=== PATIENT | female | born 1960 | race Caucasian/White ===

== ENCOUNTER 2017-03-21 14:02 | Inpatient (IN) | payer BC, MEDICARE ==
[~2017-03-21] VITALS: Ht 165.1 cm; Wt 57.2 kg
[~2017-03-21 14:02] MED LIST: CARI350T PO; CLON2TAB PO; LEVE750T35 PO; PREG300C PO; TRAM50TA2 PO
[2017-03-21] MEDS ORDERED: Z GUARD REMEDY PASTE 57 GM TUBE TOP PRN (14:45)
[2017-03-21] MEDS ORDERED: MAGNESIUM HYDROXIDE 30 ML LIQUID UDC PO PRN (14:45)
[2017-03-21] MEDS ORDERED: LEVA1.2528 IH (14:55)
[2017-03-21] MEDS ORDERED: MIRT15TA7 PO (14:55)
[2017-03-21] MEDS ORDERED: LAMO25TA PO (14:55)
[2017-03-21] MEDS ORDERED: PRED20TA PO (14:55)
[2017-03-21] MEDS ORDERED: RISP0.5T20 SL (14:55)
[2017-03-21] MEDS ORDERED: ALBU2.5V38 IH (14:55)
[2017-03-21] MEDS ORDERED: BENZ0.5T43 PO (14:55)
[2017-03-21] MEDS ORDERED: ASPI-869 PO (14:55)
[2017-03-21] MEDS ORDERED: ENOX40DI SQ (14:55)
[2017-03-21] MEDS ORDERED: LACT-215 PO (14:55)
[2017-03-21 20:22] VITALS: BP 114/71
[2017-03-22] MEDS ORDERED: TRAMADOL HCL 50 MG TABLET PO PRN (07:00)
[2017-03-22] MEDS ORDERED: LEVALBUTEROL HCL NEB 0.63 MG/3 ML NEBU NEB PRN (07:00)
[2017-03-22] MEDS ORDERED: CARISOPRODOL 350 MG TABLET PO PRN (07:00)
[2017-03-22 08:00] VITALS: BP 119/77
[2017-03-22] MEDS ORDERED: LAMOTRIGINE 25 MG TABLET PO SCH (09:00)
[2017-03-22] MEDS ORDERED: ASPIRIN EC 325 MG TABLET.DR PO SCH (09:00)
[2017-03-22] MEDS ORDERED: LEVETIRACETAM 750 MG PO SCH (09:00)
[2017-03-22] MEDS ORDERED: PREGABALIN 300 MG PO SCH (09:00)
[2017-03-22] MEDS ORDERED: BENZTROPINE MESYLATE 0.5 MG TABLET PO SCH (09:00)
[2017-03-22] MEDS ORDERED: LACTOSE FREE FOOD PO SCH (09:00)
[2017-03-22] MEDS ORDERED: predniSONE 20 MG TABLET PO SCH (09:00)
[2017-03-22] MEDS ORDERED: ENOXAPARIN SODIUM 40 MG/0.4 ML DISP.SYRIN SQ SCH (09:00)
[2017-03-22] MEDS ORDERED: BOOST BREEZE 237 ML LIQUID PO SCH (11:00)
[2017-03-22] MEDS ORDERED: PREGABALIN 100 MG CAPSULE PO SCH (11:00)
[2017-03-22] MEDS ORDERED: ALBUTEROL SULFATE 1.25 MG/3 ML NEBU NEB PRN (11:00)
[2017-03-22] MEDS ORDERED: CLONAZEPAM 1 MG TABLET PO SCH (11:00)
[2017-03-22] MEDS ORDERED: LEVETIRACETAM 500 MG TABLET PO SCH (11:15)
[2017-03-22] MEDS: risperiDONE 0.5 MG TABLET PO SCH ×2 (11:38→13:29)
[2017-03-22] MEDS ORDERED: ONDANSETRON 4 MG/2 ML VIAL IV PRN (16:45)
[2017-03-22] MEDS ORDERED: MAGNESIUM HYDROXIDE 30 ML LIQUID UDC PO PRN (16:45)
[2017-03-22] MEDS ORDERED: Z GUARD REMEDY PASTE 57 GM TUBE TOP PRN (16:45)
[2017-03-22] MEDS ORDERED: IV NS 1000 ML 1,000 ML IV PRN (16:45)
[2017-03-22 17:11] LABS: ABG BASE EXCESS -1.3 mmol/L; ABG HCO3 22.1 mmol/L; ABG PCO2 33.5 mmHg (35.0-45.0); ABG PH 7.438 (7.350-7.450); ABG PO2 112.5 mmHg (75.0-100.0); ABG SITE RIGHT BRACHIAL; ABG TOTAL HEMOGLOBIN 13.4 G/dL (12.0-16.0); COHb 1.1 % (0.5-1.5); MetHb 0.3 % (0.0-1.5); O2Hb 96.9 % (94.0-97.0); VENT MODE Nasal Cannula
[2017-03-22] MEDS ORDERED: MIRTAZAPINE 15 MG TABLET PO SCH (21:00)
[2017-03-23 08:51] LABS: BASOPHILS # (AUTO) 0.1 K/uL (0.0-8.0); BASOPHILS % (AUTO) 0.6 % (0.0-2.0); EOSINOPHILS # (AUTO) 0.1 K/uL (0.0-0.7); EOSINOPHILS % (AUTO) 0.9 % (0.0-7.0); HEMATOCRIT 38.9 % (31.2-41.9); HEMOGLOBIN 12.9 g/dL (10.9-14.3); LYMPHOCYTES # (AUTO) 3.6 K/uL (20.0-40.0); LYMPHOCYTES % (AUTO) 23.9 % (20.5-51.5); MEAN CORPUSCULAR HEMOGLOBIN 29.3 uug (24.7-32.8); MEAN CORPUSCULAR HGB CONC 33 g/dL (32.3-35.6); MEAN CORPUSCULAR VOLUME 88.2 fL (75.5-95.3); MONOCYTES % (AUTO) 6.9 % (0.0-11.0); NEUTROPHILS # (AUTO) 10.2 K/uL (1.8-8.9); NEUTROPHILS % (AUTO) 67.7 % (38.5-71.5); PLATELET COUNT (AUTO) 513 K/uL (179-408); RED BLOOD CELL COUNT(AUTO) 4.41 MIL/uL (3.63-4.92)
[2017-03-23 09:15] LABS: THYROID STIMULATING HORMONE 1.517 mIU/mL (0.358-3.740)
[2017-03-23 09:34] LABS: BILIRUBIN,TOTAL 0.4 mg/dL (0.2-1.0); CREATININE 0.7 mg/dL (0.6-1.3); MAGNESIUM 2.1 mg/dL (1.8-2.4); PHOSPHOROUS 3.7 mg/dL (2.5-4.9); POTASSIUM 3.3 mmol/L (3.5-5.1); TOTAL PROTEIN, SERUM 6.1 g/dL (6.4-8.2)
[2017-03-24] MEDS ORDERED: ALBU2.5V7 IH (12:27)
[2017-03-24] MEDS ORDERED: BENZ0.5T43 PO ×2 (12:27→20:32)
[2017-03-24] MEDS ORDERED: LAMO25TA5 PO (12:27)
[2017-03-24] MEDS ORDERED: ASPI-610 PO (12:27)
[2017-03-24] MEDS ORDERED: ENOX40DI SQ ×2 (12:27→20:32)
[2017-03-24] MEDS ORDERED: MIRT15TA7 PO ×2 (12:27→20:32)
[2017-03-24] MEDS ORDERED: LEVE500T9 PO (12:27)
[2017-03-24] MEDS ORDERED: RISP0.5T5 PO (12:27)
[2017-03-24] MEDS ORDERED: LIDO30AD10 TD ×2 (12:27→20:32)
[2017-03-24] MEDS ORDERED: PRED20TA PO ×2 (12:27→20:32)
[2017-03-24] MEDS ORDERED: PREG50CA PO ×2 (12:27→20:32)
[2017-03-24] MEDS ORDERED: ATOR20TA PO ×2 (12:27→20:32)
[2017-03-24] MEDS ORDERED: ALBUTEROL SULFATE 2.5 MG/3 ML NEBU NEB PRN (21:15)
[2017-03-25] MEDS: ACETAMINOPHEN 325 MG TABLET PO PRN (00:12)
[2017-03-25 08:00] VITALS: BP 114/47
[2017-03-25] MEDS: LIDOCAINE 5% PATCH TD SCH (10:15)
[2017-03-25] MEDS: LAMOTRIGINE 25 MG TABLET PO SCH ×2 (10:15→20:44)
[2017-03-25] MEDS: LEVETIRACETAM 500 MG TABLET PO SCH ×2 (10:16→20:43)
[2017-03-25] MEDS: risperiDONE 0.5 MG TABLET PO SCH ×3 (10:16→17:20)
[2017-03-25] MEDS: ASPIRIN 325 MG TABLET PO SCH (10:17)
[2017-03-25] MEDS: PREGABALIN 50 MG CAPSULE PO SCH (10:17)
[2017-03-25] MEDS: predniSONE 20 MG TABLET PO SCH (10:17)
[2017-03-25] MEDS: BENZTROPINE MESYLATE 0.5 MG TABLET PO SCH ×2 (10:17→17:20)
[2017-03-25] MEDS: ENOXAPARIN SODIUM 40 MG/0.4 ML DISP.SYRIN SQ SCH (10:29)
[2017-03-25 20:00] VITALS: BP 115/82
[2017-03-25] MEDS: ATORVASTATIN 20 MG TABLET PO SCH (20:43)
[2017-03-25] MEDS: MIRTAZAPINE 15 MG TABLET PO SCH (20:44)
[2017-03-25] MEDS: ZOLPIDEM 5 MG TABLET PO PRN (22:11)
[2017-03-26 07:10] VITALS: BP 118/73
[2017-03-26] MEDS: LEVETIRACETAM 500 MG TABLET PO SCH ×2 (09:18→21:04)
[2017-03-26] MEDS: risperiDONE 0.5 MG TABLET PO SCH ×3 (09:18→16:08)
[2017-03-26] MEDS: BENZTROPINE MESYLATE 0.5 MG TABLET PO SCH ×2 (09:18→16:08)
[2017-03-26] MEDS: PREGABALIN 50 MG CAPSULE PO SCH (09:19)
[2017-03-26] MEDS: predniSONE 20 MG TABLET PO SCH (09:19)
[2017-03-26] MEDS: LIDOCAINE 5% PATCH TD SCH (09:19)
[2017-03-26] MEDS: ASPIRIN 325 MG TABLET PO SCH (09:19)
[2017-03-26] MEDS: LAMOTRIGINE 25 MG TABLET PO SCH ×2 (09:19→21:04)
[2017-03-26] MEDS: ENOXAPARIN SODIUM 40 MG/0.4 ML DISP.SYRIN SQ SCH (09:22)
[2017-03-26 16:49] LABS: CREATININE 0.7 mg/dL (0.6-1.3); POTASSIUM 3.6 mmol/L (3.5-5.1)
[2017-03-26 20:25] VITALS: BP 115/73
[2017-03-26] MEDS: ATORVASTATIN 20 MG TABLET PO SCH (21:02)
[2017-03-26] MEDS: MIRTAZAPINE 15 MG TABLET PO SCH (21:03)
[2017-03-26] MEDS: ZOLPIDEM 5 MG TABLET PO PRN (22:47)
[2017-03-26] MEDS: METHOCARBAMOL 500 MG TABLET PO PRN (22:47)
[2017-03-27 07:15] VITALS: BP 104/71
[2017-03-27 07:20] VITALS: BP 149/70
[2017-03-27] MEDS: ASPIRIN 325 MG TABLET PO SCH (08:30)
[2017-03-27] MEDS: LAMOTRIGINE 25 MG TABLET PO SCH ×2 (08:30→22:04)
[2017-03-27] MEDS: risperiDONE 0.5 MG TABLET PO SCH ×3 (08:30→17:45)
[2017-03-27] MEDS: BENZTROPINE MESYLATE 0.5 MG TABLET PO SCH ×2 (08:30→17:44)
[2017-03-27] MEDS: PREGABALIN 50 MG CAPSULE PO SCH (08:30)
[2017-03-27] MEDS: LIDOCAINE 5% PATCH TD SCH (08:30)
[2017-03-27] MEDS: predniSONE 20 MG TABLET PO SCH (08:31)
[2017-03-27] MEDS: ENOXAPARIN SODIUM 40 MG/0.4 ML DISP.SYRIN SQ SCH (08:35)
[2017-03-27] MEDS: BACLOFEN 10 MG TABLET PO SCH ×3 (08:37→17:00)
[2017-03-27] MEDS: LEVETIRACETAM 500 MG TABLET PO SCH ×2 (09:31→22:03)
[2017-03-27] MEDS: METHOCARBAMOL 500 MG TABLET PO PRN ×3 (09:32→23:04)
[2017-03-27] MEDS: ACETAMINOPHEN 325 MG TABLET PO PRN (18:41)
[2017-03-27 20:17] VITALS: BP 105/43
[2017-03-27] MEDS: MIRTAZAPINE 15 MG TABLET PO SCH (22:03)
[2017-03-27] MEDS: ATORVASTATIN 20 MG TABLET PO SCH (22:03)
[2017-03-27] MEDS: ZOLPIDEM 5 MG TABLET PO PRN (23:04)
[2017-03-28] MEDS: predniSONE 20 MG TABLET PO SCH (09:22)
[2017-03-28] MEDS: LEVETIRACETAM 500 MG TABLET PO SCH ×2 (09:22→21:41)
[2017-03-28] MEDS: risperiDONE 0.5 MG TABLET PO SCH ×3 (09:22→16:05)
[2017-03-28] MEDS: LIDOCAINE 5% PATCH TD SCH (09:22)
[2017-03-28] MEDS: ASPIRIN 325 MG TABLET PO SCH (09:22)
[2017-03-28] MEDS: LAMOTRIGINE 25 MG TABLET PO SCH ×2 (09:22→21:42)
[2017-03-28] MEDS: BENZTROPINE MESYLATE 0.5 MG TABLET PO SCH ×2 (09:22→16:05)
[2017-03-28] MEDS: PREGABALIN 50 MG CAPSULE PO SCH (09:22)
[2017-03-28] MEDS: ENOXAPARIN SODIUM 40 MG/0.4 ML DISP.SYRIN SQ SCH (09:23)
[2017-03-28 09:42] VITALS: BP 114/70
[2017-03-28] MEDS: METHOCARBAMOL 500 MG TABLET PO PRN (13:30)
[2017-03-28 19:30] VITALS: BP 129/59
[2017-03-28] MEDS: ATORVASTATIN 20 MG TABLET PO SCH (21:41)
[2017-03-28] MEDS: CARISOPRODOL 350 MG TABLET PO PRN (21:42)
[2017-03-28] MEDS: MIRTAZAPINE 15 MG TABLET PO SCH (21:42)
[2017-03-28] MEDS: ZOLPIDEM 5 MG TABLET PO PRN (23:20)
[2017-03-29] MEDS: predniSONE 20 MG TABLET PO SCH (08:08)
[2017-03-29] MEDS: BENZTROPINE MESYLATE 0.5 MG TABLET PO SCH ×2 (08:08→16:41)
[2017-03-29] MEDS: LAMOTRIGINE 25 MG TABLET PO SCH ×2 (08:08→20:33)
[2017-03-29] MEDS: risperiDONE 0.5 MG TABLET PO SCH ×3 (08:08→16:41)
[2017-03-29] MEDS: LEVETIRACETAM 500 MG TABLET PO SCH ×2 (08:08→20:33)
[2017-03-29] MEDS: ASPIRIN 325 MG TABLET PO SCH (08:08)
[2017-03-29] MEDS: PREGABALIN 50 MG CAPSULE PO SCH (08:08)
[2017-03-29] MEDS: ENOXAPARIN SODIUM 40 MG/0.4 ML DISP.SYRIN SQ SCH (08:09)
[2017-03-29] MEDS: LIDOCAINE 5% PATCH TD SCH (08:10)
[2017-03-29] MEDS: POLYVINYL ALCOHOL OPHT DROPS 15 ML BOTTLE EACHEYE PRN (08:10)
[2017-03-29 08:59] VITALS: BP 100/69
[2017-03-29 20:22] VITALS: BP 107/62
[2017-03-29] MEDS: ATORVASTATIN 20 MG TABLET PO SCH (20:33)
[2017-03-29] MEDS: METHOCARBAMOL 500 MG TABLET PO PRN (20:33)
[2017-03-29] MEDS: MIRTAZAPINE 15 MG TABLET PO SCH (20:33)
[2017-03-30] MEDS: ZOLPIDEM 5 MG TABLET PO PRN (00:14)
[2017-03-30] MEDS: CARISOPRODOL 350 MG TABLET PO PRN ×4 (00:14→23:05)
[2017-03-30 08:00] VITALS: BP 120/86
[2017-03-30] MEDS: PREGABALIN 50 MG CAPSULE PO SCH (08:21)
[2017-03-30] MEDS: predniSONE 20 MG TABLET PO SCH (08:21)
[2017-03-30] MEDS: BENZTROPINE MESYLATE 0.5 MG TABLET PO SCH ×2 (08:21→17:00)
[2017-03-30] MEDS: LEVETIRACETAM 500 MG TABLET PO SCH ×2 (08:21→20:36)
[2017-03-30] MEDS: LAMOTRIGINE 25 MG TABLET PO SCH ×2 (08:22→20:38)
[2017-03-30] MEDS: LIDOCAINE 5% PATCH TD SCH (08:22)
[2017-03-30] MEDS: ASPIRIN 325 MG TABLET PO SCH (08:22)
[2017-03-30] MEDS: risperiDONE 0.5 MG TABLET PO SCH ×3 (08:22→17:00)
[2017-03-30] MEDS: ENOXAPARIN SODIUM 40 MG/0.4 ML DISP.SYRIN SQ SCH (08:23)
[2017-03-30] MEDS ORDERED: ERGOCALCIFEROL 50,000 UNIT CAPSULE PO SCH (09:00)
[2017-03-30 20:23] VITALS: BP 119/83
[2017-03-30] MEDS: ATORVASTATIN 20 MG TABLET PO SCH (20:35)
[2017-03-30] MEDS: MIRTAZAPINE 15 MG TABLET PO SCH (20:37)
[2017-03-31] MEDS: POLYVINYL ALCOHOL OPHT DROPS 15 ML BOTTLE EACHEYE PRN ×3 (00:08→23:13)
[2017-03-31] MEDS: ZOLPIDEM 5 MG TABLET PO PRN ×2 (00:09→23:11)
[2017-03-31] MEDS: CARISOPRODOL 350 MG TABLET PO PRN ×3 (06:36→23:11)
[2017-03-31] MEDS: ASPIRIN 325 MG TABLET PO SCH (08:35)
[2017-03-31] MEDS: predniSONE 20 MG TABLET PO SCH (08:36)
[2017-03-31] MEDS: PREGABALIN 50 MG CAPSULE PO SCH (08:36)
[2017-03-31] MEDS: LEVETIRACETAM 500 MG TABLET PO SCH ×2 (08:36→20:51)
[2017-03-31] MEDS: LAMOTRIGINE 25 MG TABLET PO SCH ×2 (08:37→20:49)
[2017-03-31] MEDS: LIDOCAINE 5% PATCH TD SCH (08:37)
[2017-03-31] MEDS: BENZTROPINE MESYLATE 0.5 MG TABLET PO SCH ×2 (08:38→16:25)
[2017-03-31] MEDS: risperiDONE 0.5 MG TABLET PO SCH ×3 (08:38→16:25)
[2017-03-31] MEDS: ENOXAPARIN SODIUM 40 MG/0.4 ML DISP.SYRIN SQ SCH (08:48)
[2017-03-31 09:11] VITALS: BP 116/70
[2017-03-31] MEDS: METHOCARBAMOL 500 MG TABLET PO PRN (13:29)
[2017-03-31 19:30] VITALS: BP 102/58
[2017-03-31] MEDS: ATORVASTATIN 20 MG TABLET PO SCH (20:49)
[2017-03-31] MEDS: MIRTAZAPINE 15 MG TABLET PO SCH (20:50)
[2017-04-01] MEDS: METHOCARBAMOL 500 MG TABLET PO PRN ×2 (05:35→16:31)
[2017-04-01 07:00] VITALS: BP 114/80
[2017-04-01] MEDS: CARISOPRODOL 350 MG TABLET PO PRN ×3 (07:52→23:25)
[2017-04-01] MEDS: LAMOTRIGINE 25 MG TABLET PO SCH ×2 (08:06→21:08)
[2017-04-01] MEDS: PREGABALIN 50 MG CAPSULE PO SCH (08:06)
[2017-04-01] MEDS: ASPIRIN 325 MG TABLET PO SCH (08:06)
[2017-04-01] MEDS: LEVETIRACETAM 500 MG TABLET PO SCH ×2 (08:06→21:05)
[2017-04-01] MEDS: risperiDONE 0.5 MG TABLET PO SCH ×3 (08:07→16:31)
[2017-04-01] MEDS: BENZTROPINE MESYLATE 0.5 MG TABLET PO SCH ×2 (08:07→16:31)
[2017-04-01] MEDS: predniSONE 20 MG TABLET PO SCH (08:07)
[2017-04-01] MEDS: ENOXAPARIN SODIUM 40 MG/0.4 ML DISP.SYRIN SQ SCH (08:09)
[2017-04-01] MEDS: LIDOCAINE 5% PATCH TD SCH (08:10)
[2017-04-01] MEDS: POLYVINYL ALCOHOL OPHT DROPS 15 ML BOTTLE EACHEYE PRN ×2 (12:31→23:27)
[2017-04-01 19:30] VITALS: BP 113/56
[2017-04-01] MEDS: ACETAMINOPHEN 325 MG TABLET PO PRN (21:04)
[2017-04-01] MEDS: MIRTAZAPINE 15 MG TABLET PO SCH (21:08)
[2017-04-01] MEDS: ATORVASTATIN 20 MG TABLET PO SCH (21:09)
[2017-04-01] MEDS: ZOLPIDEM 5 MG TABLET PO PRN (23:25)
[2017-04-02] MEDS: METHOCARBAMOL 500 MG TABLET PO PRN (04:23)
[2017-04-02] MEDS: ACETAMINOPHEN 325 MG TABLET PO PRN (04:24)
[2017-04-02] MEDS: CARISOPRODOL 350 MG TABLET PO PRN (06:02)
[2017-04-02 08:00] VITALS: BP 101/70
[2017-04-02] MEDS: predniSONE 20 MG TABLET PO SCH (08:19)
[2017-04-02] MEDS: risperiDONE 0.5 MG TABLET PO SCH (08:19)
[2017-04-02] MEDS: PREGABALIN 50 MG CAPSULE PO SCH (08:19)
[2017-04-02] MEDS: LIDOCAINE 5% PATCH TD SCH (08:19)
[2017-04-02] MEDS: BENZTROPINE MESYLATE 0.5 MG TABLET PO SCH (08:19)
[2017-04-02] MEDS: ASPIRIN 325 MG TABLET PO SCH (08:19)
[2017-04-02] MEDS: LAMOTRIGINE 25 MG TABLET PO SCH (08:19)
[2017-04-02] MEDS: LEVETIRACETAM 500 MG TABLET PO SCH (08:19)
[2017-04-02] MEDS: POLYVINYL ALCOHOL OPHT DROPS 15 ML BOTTLE EACHEYE PRN (08:21)
== END 2017-03-22 16:00 | disposition short-term general hospital (02) | DRG 92 ==
LOC: UNDOLOA 03-22 14:30 → UNDODISIN 04-02 10:30
PROVIDERS: ADMIT Physical Medicine & Rehabilitation Pain Medicine; ATTEND Physical Medicine & Rehabilitation Pain Medicine
DX: G92 Toxic encephalopathy (principal); F31.64 Bipolar disorder, current episode mixed, severe, with psychotic features; F22 Delusional disorders; I50.9 Heart failure, unspecified; F19.10 Other psychoactive substance abuse, uncomplicated; J44.9 Chronic obstructive pulmonary disease, unspecified; Z86.73 Personal history of transient ischemic attack (TIA), and cerebral infarction without residual deficits; G40.909 Epilepsy, unspecified, not intractable, without status epilepticus; R53.83 Other fatigue; X58.XXXS Exposure to other specified factors, sequela; G89.4 Chronic pain syndrome; M19.90 Unspecified osteoarthritis, unspecified site; Z86.59 Personal history of other mental and behavioral disorders; Z86.011 Personal history of benign neoplasm of the brain; Z80.0 Family history of malignant neoplasm of digestive organs; M62.838 Other muscle spasm; S72.91XS Unspecified fracture of right femur, sequela
CPT/HCPCS: 36415; 36600; 70030-TC; 70450; 71045; 82306; 83735; 84100; 84443; 85025; 92507; 92523; 97110; 97112; 97116; 97530; 97535; A4663; J1650; J2405; J7512

== ENCOUNTER 2017-03-22 16:00 | Inpatient (IN) | payer MEDICARE ==
[~2017-03-22] VITALS: Ht 165.1 cm; Wt 57.2 kg
--- NOTE | 2017-03-22 15:40 | NUR ---
Received client via gurney by two Rehab personal from [facility]. VS stable. Client seems lethargic, arousable only to name after several times. Sister, Courtney is by bedside. Report received by Med-Surg charge nurse
[2017-03-22 15:58] VITALS: BP 109/67
[~2017-03-22 16:00] MED LIST changes: +ALBU2.5V38 IH; +ASPI-869 PO; +BENZ0.5T3 PO; +ENOX40DI SQ; +LACT-215 PO; +LAMO25TA PO; +LEVA1.2528 IH; +MIRT15TA7 PO; +PRED20TA PO; +RISP0.5T20 SL
--- NOTE | 2017-03-22 16:30 | NUR ---
Received orders from [facility]ARP REPAIRER to insert IV line on the right foot after several IV insertion tries by charge nurse and myself. Midline order will be placed.
--- NOTE | 2017-03-22 19:00 | NUR ---
Chest xray done
[2017-03-22 19:05] LABS: BASOPHILS # (AUTO) 0.1 K/uL (0.0-8.0); BASOPHILS % (AUTO) 0.6 % (0.0-2.0); EOSINOPHILS # (AUTO) 0.1 K/uL (0.0-0.7); EOSINOPHILS % (AUTO) 0.9 % (0.0-7.0); HEMATOCRIT 38.6 % (31.2-41.9); HEMOGLOBIN 12.9 g/dL (10.9-14.3); LYMPHOCYTES # (AUTO) 1.8 K/uL (20.0-40.0); LYMPHOCYTES % (AUTO) 12.7 % (20.5-51.5); MEAN CORPUSCULAR HEMOGLOBIN 29.6 uug (24.7-32.8); MEAN CORPUSCULAR HGB CONC 33 g/dL (32.3-35.6); MEAN CORPUSCULAR VOLUME 88.6 fL (75.5-95.3); MONOCYTES # (AUTO) 0.5 K/uL (2.0-10.0); MONOCYTES % (AUTO) 3.3 % (0.0-11.0); NEUTROPHILS % (AUTO) 82.5 % (38.5-71.5); PLATELET COUNT (AUTO) 456 K/uL (179-408); RED BLOOD CELL COUNT(AUTO) 4.36 MIL/uL (3.63-4.92); WHITE BLOOD COUNT (AUTO) 14.5 K/uL (3.8-11.8)
--- NOTE | 2017-03-22 19:12 | NUR ---
Midline insertion being done
--- NOTE | 2017-03-22 19:18 | NUR ---
Client has be arousable only to name and light pain. VS stable. O2 via NC at 2L. No IV hydration running at this time. Client is hard to arouse. Client is laying in bed in a supine position with the HOB at a semi fowlers position. Using the FLACC assessment, client is in no pain. Midline insert done. Blood gases drawn and chest xray done. Admission done upon available resources, such as the chart. Call light within reach for assistance and bed at lowest position for safety.
[2017-03-22 19:20] LABS: MAGNESIUM 2.2 mg/dL (1.8-2.4); PHOSPHOROUS 5.1 mg/dL (2.5-4.9)
[2017-03-22 20:00] VITALS: BP 111/62
[2017-03-23] VITALS: BP 121/73
--- NOTE | 2017-03-23 03:39 | NUR ---
Awake at this time requesting water. Patient is NPO, throat dryness noted. Provided ice chips to lubricate her throat. Patient tolerated. Sinus rhythm on the monitor.
[2017-03-23 04:00] VITALS: BP 115/67
--- NOTE | 2017-03-23 04:12 | NUR ---
Assisted to the bathroom, unsteady gait noted. Patient voided & brushed her teeth. Patient is alert & oriented x3. Sinus tach on the monitor w/ HR 103 bpm.
[2017-03-23] MEDS ORDERED: LIDOCAINE 5% PATCH TD SCH (10:45)
[2017-03-23 11:33] VITALS: BP 106/68
[2017-03-23] MEDS ORDERED: PREGABALIN 25 MG CAPSULE PO SCH (11:45)
[2017-03-23] MEDS ORDERED: LEVETIRACETAM 750 MG PO SCH (11:45)
[2017-03-23] MEDS ORDERED: ALBUTEROL SULFATE 2.5 MG/3 ML NEBU IH PRN (11:45)
[2017-03-23] MEDS ORDERED: POTASSIUM CHLORIDE 20 MEQ TAB.PRT.SR PO ONE (12:00)
[2017-03-23 12:09] LABS: BASOPHILS # (AUTO) 0.1 K/uL (0.0-8.0); EOSINOPHILS # (AUTO) 0.1 K/uL (0.0-0.7); HEMATOCRIT 38.3 % (31.2-41.9); HEMOGLOBIN 12.8 g/dL (10.9-14.3); LYMPHOCYTES # (AUTO) 3.6 K/uL (20.0-40.0); LYMPHOCYTES % (AUTO) 26.5 % (20.5-51.5); MEAN CORPUSCULAR HEMOGLOBIN 29.4 uug (24.7-32.8); MEAN CORPUSCULAR HGB CONC 33 g/dL (32.3-35.6); MEAN CORPUSCULAR VOLUME 88.2 fL (75.5-95.3); MONOCYTES % (AUTO) 7.3 % (0.0-11.0); NEUTROPHILS # (AUTO) 8.6 K/uL (1.8-8.9); NEUTROPHILS % (AUTO) 64.2 % (38.5-71.5); PLATELET COUNT (AUTO) 488 K/uL (179-408); RED BLOOD CELL COUNT(AUTO) 4.35 MIL/uL (3.63-4.92); WHITE BLOOD COUNT (AUTO) 13.4 K/uL (3.8-11.8)
[2017-03-23 12:33] LABS: CREATININE 0.8 mg/dL (0.6-1.3)
[2017-03-23] MEDS: LIDOCAINE 5% PATCH TD SCH (12:46)
[2017-03-23] MEDS: LEVETIRACETAM 500 MG TABLET PO SCH ×2 (12:47→20:05)
[2017-03-23] MEDS: risperiDONE 0.5 MG TABLET PO SCH ×2 (12:47→16:49)
[2017-03-23] MEDS: PREGABALIN 50 MG CAPSULE PO SCH (12:47)
[2017-03-23] MEDS: predniSONE 20 MG TABLET PO SCH (12:47)
[2017-03-23] MEDS: IV NS 1000 ML 1,000 ML IV PRN (12:49)
[2017-03-23] MEDS: ENOXAPARIN SODIUM 40 MG/0.4 ML DISP.SYRIN SQ SCH (12:50)
[2017-03-23 14:15] LABS: *BILIRUBIN,URIN NEGATIVE (NEGATIVE); *BLOOD, URINE NEGATIVE (NEGATIVE); *CLARITY,URINE CLEAR (CLEAR); *COLOR,URINE YELLOW (YELLOW); *KETONES,URINE NEGATIVE (NEGATIVE); *PROTEIN,URINE NEGATIVE (NEGATIVE); LEUKOCYTE ESTERASE ,URINE NEGATIVE (NEGATIVE); NITRITE, URINE NEGATIVE (NEGATIVE); UGLUCOSE NEGATIVE (NEGATIVE)
[2017-03-23 14:28] LABS: BACTERIA,URINE NONE SEEN /HPF (NONE SEEN); RBC,URINE 0-3 /HPF (0-3); SQUAMOUS EPITHELIAL CELL,UR FEW /HPF (NONE SEEN); WBC,URINE 0-3 /HPF (0-3); YEAST,URINE FEW /HPF (NONE SEEN)
[2017-03-23 14:29] LABS: MUCUS,URINE FEW /LPF (0-FEW)
--- NOTE | 2017-03-23 15:50 | NUR ---
Spouse at bedside.
[2017-03-23 15:54] VITALS: BP 107/65
[2017-03-23] MEDS: BENZTROPINE MESYLATE 0.5 MG TABLET PO SCH (16:49)
[2017-03-23] MEDS: LACTOSE-FREE FOOD 237 ML LIQUID PO SCH (16:50)
[2017-03-23] MEDS ORDERED: LACTOSE FREE FOOD PO SCH (17:00)
--- NOTE | 2017-03-23 18:00 | NUR ---
Patient is alert, in no distress, no SOB, tolerating room air at 96%. Patient's right eye unable to close while sleeping due to s/p hx of craniotomy > 10yrs ago as patient stated. IVF infusing, no infiltration noted. Assisted patient with toileting needs. Encouraged patient with meal/snacks/fluid intake. Call light within reach, bed alarm on. Will continue to monitor.
[2017-03-23] MEDS: LAMOTRIGINE 25 MG TABLET PO SCH (20:07)
[2017-03-23 20:44] VITALS: BP 102/75
[2017-03-23] MEDS ORDERED: ATORVASTATIN 20 MG TABLET PO SCH (21:00)
[2017-03-23] MEDS ORDERED: MIRTAZAPINE 15 MG TABLET PO SCH (21:00)
--- NOTE | 2017-03-23 21:00 | NUR ---
Awake watching TV, dinner tray still in room, noted 75% intake. IVF infusing well, right upper arm midline patent no signs of infiltrations. Vital signs WNL. Routine night meds adm po, patient tolerated. Assisted w/ toileting needs. Will continue to monitor.
[2017-03-24] MEDS: IV NS 1000 ML 1,000 ML IV PRN ×2 (02:09→16:35)
[2017-03-24 04:00] VITALS: BP 108/62
[2017-03-24 06:46] LABS: BASOPHILS # (AUTO) 0.1 K/uL (0.0-8.0); BASOPHILS % (AUTO) 0.8 % (0.0-2.0); EOSINOPHILS # (AUTO) 0.1 K/uL (0.0-0.7); EOSINOPHILS % (AUTO) 0.6 % (0.0-7.0); HEMATOCRIT 35.6 % (31.2-41.9); LYMPHOCYTES # (AUTO) 3.2 K/uL (20.0-40.0); LYMPHOCYTES % (AUTO) 23.2 % (20.5-51.5); MEAN CORPUSCULAR HEMOGLOBIN 29.7 uug (24.7-32.8); MEAN CORPUSCULAR HGB CONC 34 g/dL (32.3-35.6); MEAN CORPUSCULAR VOLUME 87.8 fL (75.5-95.3); MONOCYTES % (AUTO) 7.3 % (0.0-11.0); NEUTROPHILS # (AUTO) 9.5 K/uL (1.8-8.9); NEUTROPHILS % (AUTO) 68.1 % (38.5-71.5); PLATELET COUNT (AUTO) 467 K/uL (179-408); RED BLOOD CELL COUNT(AUTO) 4.05 MIL/uL (3.63-4.92); WHITE BLOOD COUNT (AUTO) 13.9 K/uL (3.8-11.8)
[2017-03-24 07:03] LABS: CREATININE 0.6 mg/dL (0.6-1.3); MAGNESIUM 1.7 mg/dL (1.8-2.4); PHOSPHOROUS 2.8 mg/dL (2.5-4.9); POTASSIUM 3.5 mmol/L (3.5-5.1)
[2017-03-24] MEDS: PREGABALIN 50 MG CAPSULE PO SCH (08:26)
[2017-03-24] MEDS: risperiDONE 0.5 MG TABLET PO SCH ×3 (08:26→16:29)
[2017-03-24] MEDS: LEVETIRACETAM 500 MG TABLET PO SCH (08:26)
[2017-03-24] MEDS: LAMOTRIGINE 25 MG TABLET PO SCH (08:26)
[2017-03-24] MEDS: predniSONE 20 MG TABLET PO SCH (08:26)
[2017-03-24] MEDS: BENZTROPINE MESYLATE 0.5 MG TABLET PO SCH ×2 (08:26→16:29)
[2017-03-24] MEDS: LACTOSE-FREE FOOD 237 ML LIQUID PO SCH ×2 (08:27→16:29)
[2017-03-24] MEDS: LIDOCAINE 5% PATCH TD SCH (08:27)
[2017-03-24] MEDS: ENOXAPARIN SODIUM 40 MG/0.4 ML DISP.SYRIN SQ SCH (08:29)
[2017-03-24] MEDS ORDERED: ASPIRIN EC 325 MG TABLET.DR PO SCH (09:00)
[2017-03-24] MEDS ORDERED: MAGNESIUM OXIDE 400 MG TABLET PO ONE (11:15)
[2017-03-24 11:33] VITALS: BP 115/64
[2017-03-24] MEDS ORDERED: LEVE500T9 PO (12:27)
[2017-03-24] MEDS ORDERED: LAMO25TA5 PO (12:27)
[2017-03-24] MEDS ORDERED: ALBU2.5V7 IH (12:27)
[2017-03-24] MEDS ORDERED: ATOR20TA PO ×2 (12:27→20:32)
[2017-03-24] MEDS ORDERED: RISP0.5T5 PO (12:27)
[2017-03-24] MEDS ORDERED: ASPI-610 PO (12:27)
[2017-03-24] MEDS ORDERED: LIDO30AD10 TD ×2 (12:27→20:32)
[2017-03-24] MEDS ORDERED: BENZ0.5T3 PO ×2 (12:27→20:32)
[2017-03-24] MEDS ORDERED: PREG50CA PO ×2 (12:27→20:32)
[2017-03-24] MEDS ORDERED: PRED20TA PO ×2 (12:27→20:32)
[2017-03-24] MEDS ORDERED: MIRT15TA7 PO ×2 (12:27→20:32)
[2017-03-24] MEDS ORDERED: ENOX40DI SQ ×2 (12:27→20:32)
[2017-03-24 15:40] VITALS: BP 112/66
--- NOTE | 2017-03-24 18:30 | NUR ---
Patient discharged to ARU. Patient is alert, in no distress. Patient left the unit, transported to the ARU via wheelchair, assisted by 2 RNs. Discharged papers with the patient. Midline on KALINA intact/patent/flushed, saline locked. All medications administered through 1700 schedule. Patient has no belongings. Family aware. Will report to oncoming ARU night court magistrate RN.
[2017-03-24] MEDS ORDERED: ALBU2.5V38 NEB (20:32)
[2017-03-24] MEDS ORDERED: LAMO25TA PO (20:32)
[2017-03-24] MEDS ORDERED: LEVE1000 PO (20:32)
[2017-03-24] MEDS ORDERED: RISP0.5T20 PO (20:32)
[2017-03-24] MEDS ORDERED: ASPI-612 PO (20:32)
== END 2017-03-24 18:30 | DRG 92 ==
LOC: TELE 16:00 → MED 03-23 11:00
PROVIDERS: ATTEND Nurse Practitioner Acute Care
PROC: 05H533Z Insertion of Infusion Device into Right Subclavian Vein, Percutaneous Approach (ICD-10-PCS; principal; 2017-03-22)
DX: G92 Toxic encephalopathy (principal); E44.0 Moderate protein-calorie malnutrition; J84.9 Interstitial pulmonary disease, unspecified; G40.909 Epilepsy, unspecified, not intractable, without status epilepticus; M51.36 Other intervertebral disc degeneration, lumbar region; T42.4X5A Adverse effect of benzodiazepines, initial encounter; T39.1X5A Adverse effect of 4-Aminophenol derivatives, initial encounter; T42.6X5A Adverse effect of other antiepileptic and sedative-hypnotic drugs, initial encounter; T40.4X5A Adverse effect of other synthetic narcotics, initial encounter; Y92.230 Patient room in hospital as the place of occurrence of the external cause; Z68.21 Body mass index [BMI] 21.0-21.9, adult; F31.9 Bipolar disorder, unspecified; F50.9 Eating disorder, unspecified; M19.90 Unspecified osteoarthritis, unspecified site; Z96.642 Presence of left artificial hip joint; F17.210 Nicotine dependence, cigarettes, uncomplicated; Z79.82 Long term (current) use of aspirin; Z79.899 Other long term (current) drug therapy; G89.4 Chronic pain syndrome; E87.6 Hypokalemia; E78.5 Hyperlipidemia, unspecified; G62.9 Polyneuropathy, unspecified; Z87.01 Personal history of pneumonia (recurrent); F11.11 Opioid abuse, in remission; M62.830 Muscle spasm of back
CPT/HCPCS: 36415; 83735; 84100; 85025; J1650; J7030; J7512

== ENCOUNTER 2017-03-24 18:30 | Inpatient (IN) | payer MEDICARE ==
[~2017-03-24 18:30] MED LIST changes: +ALBU2.5V7 IH; +ASPI-610 PO; +ATOR20TA PO; -BENZ0.5T3 PO; +BENZ0.5T43 PO; +LAMO25TA5 PO; +LEVE500T9 PO; +LIDO30AD10 TD; +PREG50CA PO; +RISP0.5T5 PO
[2017-03-24] MEDS ORDERED: PREG50CA PO (20:32)
[2017-03-24] MEDS ORDERED: MIRT15TA7 PO (20:32)
[2017-03-24] MEDS ORDERED: ENOX40DI SQ (20:32)
[2017-03-24] MEDS ORDERED: RISP0.5T20 PO (20:32)
[2017-03-24] MEDS ORDERED: BENZ0.5T43 PO (20:32)
[2017-03-24] MEDS ORDERED: ATOR20TA PO (20:32)
[2017-03-24] MEDS ORDERED: LEVE1000 PO (20:32)
[2017-03-24] MEDS ORDERED: LIDO30AD10 TD (20:32)
[2017-03-24] MEDS ORDERED: ALBU2.5V38 NEB (20:32)
[2017-03-24] MEDS ORDERED: LAMO25TA PO (20:32)
[2017-03-24] MEDS ORDERED: PRED20TA PO (20:32)
[2017-03-24] MEDS ORDERED: ASPI-612 PO (20:32)
== END 2017-04-02 16:00 | disposition home health service (06) | DRG 92 ==
PROVIDERS: ADMIT Physical Medicine & Rehabilitation Pain Medicine; ATTEND Physical Medicine & Rehabilitation Pain Medicine
DX: G92 Toxic encephalopathy (principal); F31.64 Bipolar disorder, current episode mixed, severe, with psychotic features; F22 Delusional disorders; I50.9 Heart failure, unspecified; F19.10 Other psychoactive substance abuse, uncomplicated; J44.9 Chronic obstructive pulmonary disease, unspecified; Z86.73 Personal history of transient ischemic attack (TIA), and cerebral infarction without residual deficits; G40.909 Epilepsy, unspecified, not intractable, without status epilepticus; R53.83 Other fatigue; X58.XXXS Exposure to other specified factors, sequela; G89.4 Chronic pain syndrome; M19.90 Unspecified osteoarthritis, unspecified site; Z86.59 Personal history of other mental and behavioral disorders; Z86.011 Personal history of benign neoplasm of the brain; Z80.0 Family history of malignant neoplasm of digestive organs; M62.838 Other muscle spasm; S72.91XS Unspecified fracture of right femur, sequela
CPT/HCPCS: 36415; 36600; 70030-TC; 70450; 71045; 82306; 83735; 84100; 84443; 85025; 92507; 92523; 97110; 97112; 97116; 97530; 97535; A4663; J1650; J2405; J7512